=== PATIENT | male | born 1945 | race Caucasian/White ===

== ENCOUNTER → 2016-04-12 | Outpatient (CLI) | payer OTHER, MEDICARE ==
[2016-04-12 11:50] LABS: BASOPHILS # (AUTO) 0.02 10*3/UL; BASOPHILS % (AUTO) 0.5 % (0-1); EOSINOPHILS % (AUTO) 3.7 % (0-8); HEMATOCRIT 43.9 % (42.0-52.0); HEMOGLOBIN 14.4 g/dL (14.0-18.0); IMM GRAN % (AUTO) 0.3 % (0-5); IMM GRAN# (AUTO) 0.01 10*3/UL; LYMPHOCYTES # (AUTO) 0.77 10*3/uL; LYMPHOCYTES % (AUTO) 20.2 % (10-50); MEAN CORPUSCULAR HEMOGLOBIN 30.3 PG (27-31); MEAN CORPUSCULAR HGB CONC 32.8 g/dL (33-37); MEAN PLATELET VOLUME 9.5 FL (7.4-12.2); MONOCYTES # (AUTO) 0.58 10*3/UL (0.3-0.8); MONOCYTES % (AUTO) 15.2 % (5-15); NEUTROPHILS # (AUTO) 2.29 10*3/UL; NEUTROPHILS % (AUTO) 60.1 % (50-80); RDW COEFFICIENT OF VARIATION 13.2 % (11.5-14.5); RED BLOOD COUNT 4.76 10^6/uL (4.70-6.10); WHITE BLOOD COUNT 3.81 10^3/uL (4.8-10.8)
[2016-04-12 11:54] LABS: PLATELET MORPHOLOGY COMMENT NORMAL MORPHOLOGY (NORM)
[2016-04-12 11:59] LABS: BILIRUBIN,TOTAL 0.8 mg/dL (0.3-1.2); BUN/CREATININE RATIO 15.83 (6-20); CALCIUM 9.8 mg/dL (8.7-10.7); CREATININE 1.2 mg/dL (0.70-1.50); POTASSIUM 4.2 meq/L (3.8-5.2); TOTAL PROTEIN 7.1 g/dL (6.1-8.0)
--- NOTE | 2016-04-12 14:42 | DI ---
History: Hypertension. Two-view study. Prior examination: None. Findings: There is linear scarring or atelectasis the left midlung zone. Elsewhere, no nodules are ob served. There is no evidence of effusion. The heart size is within normal limits of 1736. Mild dorsal spondylosis present. Surgical clips in the abdomen identified. Impression: Linear scarring or atelectasis left midlung zone. No cardiac enlargement or failure ident ified. Dorsal spondylosis. Prior abdominal surgery
== END ==
LOC: RAD 11:36
PROVIDERS: ATTEND Internal Medicine
DX: M54.5 Low back pain (principal); I10 Essential (primary) hypertension; E78.5 Hyperlipidemia, unspecified; I25.10 Atherosclerotic heart disease of native coronary artery without angina pectoris; E66.8 Other obesity; J44.9 Chronic obstructive pulmonary disease, unspecified; K21.0 Gastro-esophageal reflux disease with esophagitis; G25.81 Restless legs syndrome; Z86.72 Personal history of thrombophlebitis
CPT/HCPCS: 36415; 71020; 80053; 85025; 85730; 87641; 99214; G0463

== ENCOUNTER → 2016-04-17 | Outpatient (CLI) | payer OTHER, MEDICARE ==
[2016-04-17 08:56] LABS: BASOPHILS # (AUTO) 0.01 10*3/UL; BASOPHILS % (AUTO) 0.3 % (0-1); EOSINOPHILS % (AUTO) 3.1 % (0-8); HEMATOCRIT 43.1 % (42.0-52.0); IMM GRAN % (AUTO) 0.3 % (0-5); IMM GRAN# (AUTO) 0.01 10*3/UL; LYMPHOCYTES % (AUTO) 23.1 % (10-50); MEAN CORPUSCULAR HEMOGLOBIN 30.2 PG (27-31); MEAN CORPUSCULAR HGB CONC 32.5 g/dL (33-37); MEAN PLATELET VOLUME 9.8 FL (7.4-12.2); MONOCYTES # (AUTO) 0.48 10*3/UL (0.3-0.8); MONOCYTES % (AUTO) 12.3 % (5-15); NEUTROPHILS # (AUTO) 2.37 10*3/UL; NEUTROPHILS % (AUTO) 60.9 % (50-80); RDW COEFFICIENT OF VARIATION 13.2 % (11.5-14.5); RED BLOOD COUNT 4.64 10^6/uL (4.70-6.10); WHITE BLOOD COUNT 3.89 10^3/uL (4.8-10.8)
[2016-04-17 09:02] LABS: PLATELET MORPHOLOGY COMMENT NORMAL MORPHOLOGY (NORM)
== END ==
LOC: LAB 08:25
PROVIDERS: ATTEND Internal Medicine
DX: D72.819 Decreased white blood cell count, unspecified (principal)
CPT/HCPCS: 36415; 85025

== ENCOUNTER → 2016-04-26 | Outpatient (CLI) | payer OTHER, MEDICARE ==
[2016-04-26 12:09] LABS: BASOPHILS # (AUTO) 0.02 10*3/UL; BASOPHILS % (AUTO) 0.4 % (0-1); EOSINOPHILS % (AUTO) 4.1 % (0-8); HEMATOCRIT 41.5 % (42.0-52.0); HEMOGLOBIN 13.3 g/dL (14.0-18.0); IMM GRAN % (AUTO) 0.4 % (0-5); IMM GRAN# (AUTO) 0.02 10*3/UL; LYMPHOCYTES # (AUTO) 0.96 10*3/uL; LYMPHOCYTES % (AUTO) 19.8 % (10-50); MEAN CORPUSCULAR HEMOGLOBIN 29.6 PG (27-31); MEAN PLATELET VOLUME 9.7 FL (7.4-12.2); MONOCYTES # (AUTO) 0.51 10*3/UL (0.3-0.8); MONOCYTES % (AUTO) 10.5 % (5-15); NEUTROPHILS # (AUTO) 3.13 10*3/UL; NEUTROPHILS % (AUTO) 64.8 % (50-80); RDW COEFFICIENT OF VARIATION 12.9 % (11.5-14.5); RED BLOOD COUNT 4.49 10^6/uL (4.70-6.10); WHITE BLOOD COUNT 4.84 10^3/uL (4.8-10.8)
[2016-04-26 12:18] LABS: BUN/CREATININE RATIO 14.54 (6-20); CALCIUM 9.9 mg/dL (8.7-10.7); CREATININE 1.1 mg/dL (0.70-1.50); POTASSIUM 4.4 meq/L (3.8-5.2)
[2016-04-26 12:27] LABS: PLATELET MORPHOLOGY COMMENT NORMAL MORPHOLOGY (NORM)
== END ==
LOC: MOB LAB 10:13
PROVIDERS: ATTEND Internal Medicine
DX: Z47.89 Encounter for other orthopedic aftercare (principal); I10 Essential (primary) hypertension; J44.9 Chronic obstructive pulmonary disease, unspecified; I89.0 Lymphedema, not elsewhere classified; I25.10 Atherosclerotic heart disease of native coronary artery without angina pectoris; Z98.890 Other specified postprocedural states
CPT/HCPCS: 36415; 80048; 85025

== ENCOUNTER → 2016-04-27 | Outpatient (CLI) | payer OTHER, MEDICARE | LOC: MMPC 09:00 | PROVIDERS: ATTEND Internal Medicine | DX: Z79.01 Long term (current) use of anticoagulants (principal); Z51.81 Encounter for therapeutic drug level monitoring; Z86.718 Personal history of other venous thrombosis and embolism | CPT/HCPCS: 85610 ==

== ENCOUNTER → 2016-05-01 | Outpatient (CLI) | payer OTHER, MEDICARE | LOC: MMPC 09:00 | PROVIDERS: ATTEND Internal Medicine | DX: Z79.01 Long term (current) use of anticoagulants (principal); Z51.81 Encounter for therapeutic drug level monitoring; Z86.718 Personal history of other venous thrombosis and embolism | CPT/HCPCS: 85610 ==

== ENCOUNTER → 2016-05-04 | Outpatient (CLI) | payer OTHER, MEDICARE | LOC: MMPC 09:00 | PROVIDERS: ATTEND Internal Medicine | DX: Z79.01 Long term (current) use of anticoagulants (principal); Z51.81 Encounter for therapeutic drug level monitoring; Z86.718 Personal history of other venous thrombosis and embolism | CPT/HCPCS: 85610 ==

== ENCOUNTER → 2016-05-18 | Outpatient (CLI) | payer OTHER, MEDICARE | LOC: MMPC 09:00 | PROVIDERS: ATTEND Internal Medicine | DX: Z79.01 Long term (current) use of anticoagulants (principal); Z51.81 Encounter for therapeutic drug level monitoring; Z86.718 Personal history of other venous thrombosis and embolism | CPT/HCPCS: 85610 ==

== ENCOUNTER → 2016-05-22 | Outpatient (CLI) | payer OTHER, MEDICARE | LOC: MMPC 09:00 | PROVIDERS: ATTEND Internal Medicine | DX: Z79.01 Long term (current) use of anticoagulants (principal); Z51.81 Encounter for therapeutic drug level monitoring; Z86.718 Personal history of other venous thrombosis and embolism | CPT/HCPCS: 85610 ==

== ENCOUNTER → 2016-05-24 | Outpatient (CLI) | payer OTHER, MEDICARE | LOC: MMPC 11:11 | PROVIDERS: ATTEND Internal Medicine | DX: I10 Essential (primary) hypertension (principal); G25.81 Restless legs syndrome; J44.9 Chronic obstructive pulmonary disease, unspecified; M43.27 Fusion of spine, lumbosacral region; Z98.890 Other specified postprocedural states | CPT/HCPCS: 99213; G0463 ==

== ENCOUNTER → 2016-05-29 | Outpatient (CLI) | payer OTHER, MEDICARE | LOC: MMPC 09:00 | PROVIDERS: ATTEND Internal Medicine | DX: Z79.01 Long term (current) use of anticoagulants (principal); Z51.81 Encounter for therapeutic drug level monitoring; Z86.718 Personal history of other venous thrombosis and embolism | CPT/HCPCS: 85610 ==

== ENCOUNTER → 2016-06-19 | Outpatient (CLI) | payer OTHER, MEDICARE ==
[2016-06-19 17:00] LABS: BUN/CREATININE RATIO 34.54 (6-20); CALCIUM 9.1 mg/dL (8.7-10.7)
== END ==
LOC: LAB 16:39
PROVIDERS: ATTEND Internal Medicine
DX: I10 Essential (primary) hypertension (principal); R07.89 Other chest pain
CPT/HCPCS: 36415; 80048

== ENCOUNTER → 2016-06-26 | Outpatient (CLI) | payer OTHER, MEDICARE | LOC: MMPC 09:00 | PROVIDERS: ATTEND Internal Medicine | DX: Z79.01 Long term (current) use of anticoagulants (principal); Z51.81 Encounter for therapeutic drug level monitoring; Z86.718 Personal history of other venous thrombosis and embolism | CPT/HCPCS: 85610 ==

== ENCOUNTER → 2016-07-07 | Outpatient (CLI) | payer OTHER, MEDICARE | LOC: LAB 15:27 | PROVIDERS: ATTEND Internal Medicine | DX: E78.5 Hyperlipidemia, unspecified (principal); R07.89 Other chest pain | CPT/HCPCS: 36415; 80048 ==

== ENCOUNTER → 2016-08-05 | Outpatient (CLI) | payer OTHER, MEDICARE | LOC: MMPC 09:00 | PROVIDERS: ATTEND Physician Assistant Medical | DX: J02.0 Streptococcal pharyngitis (principal) | CPT/HCPCS: 99213; G0463; J0561 ==

== ENCOUNTER → 2016-08-14 | Outpatient (CLI) | payer OTHER, MEDICARE | LOC: MMPC 11:11 | PROVIDERS: ATTEND Physician Assistant | DX: J01.90 Acute sinusitis, unspecified (principal) | CPT/HCPCS: 99213; G0463 ==

== ENCOUNTER → 2016-08-23 | Outpatient (CLI) | payer OTHER, MEDICARE | LOC: MMPC 11:11 | PROVIDERS: ATTEND Internal Medicine | DX: I10 Essential (primary) hypertension (principal); G25.81 Restless legs syndrome; J44.9 Chronic obstructive pulmonary disease, unspecified; K21.0 Gastro-esophageal reflux disease with esophagitis; E78.5 Hyperlipidemia, unspecified | CPT/HCPCS: 99213; G0463 ==

== ENCOUNTER → 2016-09-11 | Outpatient (CLI) | payer OTHER, MEDICARE | LOC: MMPC 09:00 | PROVIDERS: ATTEND Internal Medicine | DX: Z79.01 Long term (current) use of anticoagulants (principal); Z51.81 Encounter for therapeutic drug level monitoring; Z86.718 Personal history of other venous thrombosis and embolism | CPT/HCPCS: 85610 ==

== ENCOUNTER → 2016-10-19 | Outpatient (CLI) | payer OTHER, MEDICARE | LOC: MMPC 09:00 | PROVIDERS: ATTEND Internal Medicine | DX: Z79.01 Long term (current) use of anticoagulants (principal); Z51.81 Encounter for therapeutic drug level monitoring; Z86.718 Personal history of other venous thrombosis and embolism | CPT/HCPCS: 85610 ==

== ENCOUNTER 2018-03-06 13:58 | Observation (INO) ==
[2018-03-06] MEDS ORDERED: ACETAMINOPHEN 325 MG TABLET PO PRN (14:26)
[2018-03-06] MEDS ORDERED: DOCUSATE 100 MG CAPSULE PO PRN (14:26)
[2018-03-06] MEDS ORDERED: ONDANSETRON 4 MG/2 ML VIAL IVP PRN (14:26)
[2018-03-06] MEDS ORDERED: HYDROmorphone 2 MG/1 ML IVP PRN (14:26)
[2018-03-06] MEDS ORDERED: LIDOCAINE W/ SODIUM BICARB 0.5 ML SYR SUBD PRN ×2 (14:26→16:29)
[2018-03-06] MEDS ORDERED: CALCIUM CARBONATE 500 MG (TUMS) CHEWABLE TABLET PO PRN (14:26)
[2018-03-06] MEDS ORDERED: Lactated Ringers 1,000 ML PRIMARY IV SCH ×2 (14:30→16:30)
[2018-03-06] MEDS ORDERED: HYDROCORTISONE RC PRN (14:35)
[2018-03-06] MEDS ORDERED: KETOTIFEN FUMARATE OP PRN (14:35)
[2018-03-06] MEDS ORDERED: ALBUTEROL SULFATE 8.5 GM HFA INHALER INH PRN (14:35)
--- NOTE | 2018-03-06 14:43 | PDOC ---
HPI - History of Present Illness History of Present Illness: This very nice 72-year-old gentleman with a history of diverticulitis 1 year ago and DVT on Coumadin. Yesterday morning he started having bright but bright red blood per rectum about 10-12 times during the whole day he was seen in the ER last evening but refused admission. This morning the blood continued to come out with the more bowel movements was worried and went to see his primary care physician labs revealed a hemoglobin of 13 yesterday and today it is 11 and a drop in his hematocrit from 40-36 he complains of no dizziness nausea or vomiting has mild lower abdominal pain and no other symptoms Past Medical History Medical History: DVT, diverticulitis, restless leg syndrome Surgical History: On endoscopy 1 year ago diverticulitis In the Past 12 Months, Have Used or Abuse Any of the Following Substance: None Medication / Allergies Home Medications: Home Medications Medication Instructions Recorded Confirmed Type Hydrocortisone [Proctosol-Hc] 28.35 gm RC BID PRN #29 05/03/11 03/05/18 History Ketotifen Fumarate [Alaway] 1 drp OP BID PRN drp 06/06/11 03/05/18 History Multivitamins W-Minerals/Lut 1 tab ORAL QD tab 06/06/11 03/05/18 History [Centrum Silver Tablet] Nitroglycerin SL Tab [Nitrostat 0.4 mg SL q 5 min prn #25 tab 08/19/15 03/05/18 History SL Tab] cetirizine 10 mg tablet 10 mg PO DAILY tab 03/21/17 03/05/18 History ascorbic acid (vitamin C) 250 mg 250 mg PO BID #60 tab 04/13/17 03/05/18 History tablet ferrous gluconate 324 mg (38 mg 324 mg PO BID #180 tab 04/13/17 03/05/18 History iron) tablet ipratropium-albuterol 0.5 mg-3 3 ml INH Q4-6H PRN #25 vial 04/19/17 03/05/18 Rx mg(2.5 mg base)/3 mL nebulization soln benazepril 10 1 tab PO DAILY #90 tab 07/09/17 03/05/18 Rx mg-hydrochlorothiazide 12.5 mg tablet gabapentin 800 mg tablet 800 mg PO TID #270 tab 01/07/18 03/05/18 Rx meloxicam 15 mg tablet 15 mg PO QD #90 tab 01/07/18 03/05/18 Rx ropinirole 1 mg tablet 1 mg PO TID #270 tab 01/07/18 03/05/18 Rx simvastatin 20 mg tablet 20 mg PO QHS #90 tab 01/07/18 03/05/18 Rx albuterol sulfate HFA 90 2 puff INH Q4-6H PRN #6 inhaler 01/15/18 03/05/18 Rx mcg/actuation aerosol inhaler fluticasone 50 mcg/actuation nasal 2 spr TRAE DAILY #3 bottle 01/15/18 03/05/18 Rx spray,suspension omeprazole 20 mg capsule,delayed 20 mg PO BID #180 cap 01/15/18 03/05/18 Rx release warfarin 1 mg tablet 2 mg PO QDAY #180 tab 01/15/18 03/05/18 Rx Allergies/Adverse Reactions: Allergies Allergy/AdvReac Type Severity Reaction Status Date / Time bacitracin zinc Allergy Severe RASH Verified 03/05/18 17:38 [From Neosporin] gramicidin D [From Neosporin] Allergy Severe contact Verified 03/05/18 17:38 dermititis neomycin sulfate Allergy Severe contact Verified 03/05/18 17:38 [From Neosporin] dermatitis polymyxin B sulfate Allergy Severe contact Verified 03/05/18 17:38 [From Neosporin] dermatitis bacitracin [From Neosporin] Allergy Intermediate contact Verified 03/05/18 17:38 skin allergy Polymyxin B [From Neosporin] Allergy Intermediate RASH Verified 03/05/18 17:38 Polymyxin B Allergy Severe contact Uncoded 03/05/18 17:38 dermatitis TAPE Allergy Intermediate RASH Uncoded 03/05/18 17:38 deli meats Allergy NOT Uncoded 03/05/18 17:38 APPLICABLE seasonal allergies Allergy HIVES Uncoded 03/05/18 17:38 Review of Systems - Review of Systems All Systems: Reviewed & No Additional Complaints Except as Stated - Respiratory Respiratory: DENIES: Negative System Review, Cough, Sputum, Dyspnea At Rest, Dyspnea with Exertion, Pleuritic Pain, Hemoptysis, Wheezing, Other, See HPI - Cardiovascular Cardiovascular: DENIES: Negative System Review, Chest Pain, Edema, Syncope, Palpitations, Orthopnea, Paroxysmal Nocturnal Dyspnea, Other, See HPI - Gastrointestinal Gastrointestinal / Abdominal: REPORTS: Bloody Stool Exam - General General Appearance: Cooperative - Head Head Exam: Normal Inspection, Normocephalic, Atraumatic - Respiratory Respiratory Exam: POSITIVE: Clear to Auscultation - Bilaterally, Breathing Non Labored, Normal To Percussion, Normal to Percussion and Palpation - Cardiovascular Cardiovascular Exam: POSITIVE: RRR, No Murmur, No Clicks, No Gallops, No Rubs, PMI Non-Displaced - GI/Abdominal GI/Abdominal Exam: POSITIVE: Normal Bowel Sounds, Non Tender, Non Distended, Soft, No Masses, No Hepatomegaly, No Splenomegaly, No Organomegaly - Extremities Extremities Exam: POSITIVE: No Clubbing Present, No Edema Present, No Cyanosis Present Assessment and Plan - Patient Problems (1) Gastrointestinal bleeding Status: Acute Comment: 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
[2018-03-06] MEDS ORDERED: PANTOPRAZOLE IV 40 MG VIAL IV ONE (14:45)
[2018-03-06] MEDS: Ropinirole Tab 1 MG TAB PO SCH ×2 (15:05→21:28)
[2018-03-06] MEDS: GABAPENTIN 400 MG CAPSULE PO SCH ×2 (15:05→21:28)
--- NOTE | 2018-03-06 16:40 | CONSULT ---
Consult Note - Consult Consult Date: 03/06/18 Reason for Consult: PreOp Consulation : General Surgery Requesting Physician: Dr. Ho Primary Care Provider: Anitra Skinner MD - History of Present Illness History of Present Illness: This is a 72-year-old gentleman whose developed who developed lower GI bleed on 03/05/2018. He states he is bleeding a lot. 2 times economic to the restroom. His initial hemoglobin that time was 13. Patient at point refused to come in the hospital for admission. Patient was checked of the walk-in clinic this morning his hemoglobin was around 11. He states he had a bloody bowel movement this morning but had a normal bowel movement later this evening. He may seem hemodynamically stable. His INR was 2.4 Past Medical History Medical History: DVT, diverticulitis, restless leg syndrome Surgical History: On endoscopy 1 year ago diverticulitis Tobacco Use: Former Smoker In the Past 12 Months, Have Used or Abuse Any of the Following Substance: None Medication / Allergies Home Medications: Home Medications Medication Instructions Recorded Confirmed Type Hydrocortisone [Proctosol-Hc] 28.35 gm RC BID PRN #29 05/03/11 03/05/18 History Ketotifen Fumarate [Alaway] 1 drp OP BID PRN drp 06/06/11 03/05/18 History Multivitamins W-Minerals/Lut 1 tab ORAL QD tab 06/06/11 03/05/18 History [Centrum Silver Tablet] Nitroglycerin SL Tab [Nitrostat 0.4 mg SL q 5 min prn #25 tab 08/19/15 03/05/18 History SL Tab] cetirizine 10 mg tablet 10 mg PO DAILY tab 03/21/17 03/05/18 History ascorbic acid (vitamin C) 250 mg 250 mg PO BID #60 tab 04/13/17 03/05/18 History tablet ferrous gluconate 324 mg (38 mg 324 mg PO BID #180 tab 04/13/17 03/05/18 History iron) tablet ipratropium-albuterol 0.5 mg-3 3 ml INH Q4-6H PRN #25 vial 04/19/17 03/05/18 Rx mg(2.5 mg base)/3 mL nebulization soln benazepril 10 1 tab PO DAILY #90 tab 07/09/17 03/05/18 Rx mg-hydrochlorothiazide 12.5 mg tablet gabapentin 800 mg tablet 800 mg PO TID #270 tab 01/07/18 03/05/18 Rx meloxicam 15 mg tablet 15 mg PO QD #90 tab 01/07/18 03/05/18 Rx ropinirole 1 mg tablet 1 mg PO TID #270 tab 01/07/18 03/05/18 Rx simvastatin 20 mg tablet 20 mg PO QHS #90 tab 01/07/18 03/05/18 Rx albuterol sulfate HFA 90 2 puff INH Q4-6H PRN #6 inhaler 01/15/18 03/05/18 Rx mcg/actuation aerosol inhaler fluticasone 50 mcg/actuation nasal 2 spr TRAE DAILY #3 bottle 01/15/18 03/05/18 Rx spray,suspension omeprazole 20 mg capsule,delayed 20 mg PO BID #180 cap 01/15/18 03/05/18 Rx release warfarin 1 mg tablet 2 mg PO QDAY #180 tab 01/15/18 03/05/18 Rx Allergies/Adverse Reactions: Allergies Allergy/AdvReac Type Severity Reaction Status Date / Time bacitracin zinc Allergy Severe RASH Verified 03/05/18 17:38 [From Neosporin] gramicidin D [From Neosporin] Allergy Severe contact Verified 03/05/18 17:38 dermititis neomycin sulfate Allergy Severe contact Verified 03/05/18 17:38 [From Neosporin] dermatitis polymyxin B sulfate Allergy Severe contact Verified 03/05/18 17:38 [From Neosporin] dermatitis bacitracin [From Neosporin] Allergy Intermediate contact Verified 03/05/18 17:38 skin allergy Polymyxin B [From Neosporin] Allergy Intermediate RASH Verified 03/05/18 17:38 Polymyxin B Allergy Severe contact Uncoded 03/05/18 17:38 dermatitis TAPE Allergy Intermediate RASH Uncoded 03/05/18 17:38 deli meats Allergy NOT Uncoded 03/05/18 17:38 APPLICABLE seasonal allergies Allergy HIVES Uncoded 03/05/18 17:38 Exam - Vitals Vital Signs: Vital Signs Temperature 97.8 F Temperature Source Oral Pulse Rate [Pulse Oximeter] 88 Pulse Rate 83 Respiratory Rate 16 Blood Pressure [Right Arm] 145/69 Pulse Ox 92 Oxygen Delivery Method Room Air Height 6 ft Weight 230 lb - General General Appearance: No Acute Distress (No additional exam was done today.), Cooperative Assessment and Plan - Patient Problems (1) Gastrointestinal bleeding Current Visit: No Status: Acute Code(s): K92.2 - Gastrointestinal hemorrhage, unspecified - Assessment / Plan Additional Assessment/Plan Details: Patient has a history of diverticulosis and also hemorrhoid surgery in 2016. Most likely his 1 these 2 reasons that is bleeding. At his colonoscopy in 2016, the patient is found to have a diverticulosis but we could not see the cecum. At that time the patient has refused have a additional study. Patient has consented to do a flexible sigmoidoscopy in the a.m. He needs have his Coumadin reversed. He'll be up to his primary care doctor whether they need to restart the Coumadin are switching to Eliquis.
[2018-03-06] MEDS ORDERED: PHYTONADIONE 10 MG/1 ML AMPULE PO ONE (16:49)
[2018-03-06 17:39] LABS: BASOPHILS # (AUTO) 0.01 10*3/UL; BASOPHILS % (AUTO) 0.2 % (0-1); EOSINOPHILS # (AUTO) 0.14 10*3/UL; EOSINOPHILS % (AUTO) 2.9 % (0-8); Hematocrit [HCT] 33.5 % (42.0-52.0); Hemoglobin [HGB] 10.8 g/dL (14.0-18.0); LYMPHOCYTES # (AUTO) 1.04 10*3/uL; MEAN CORPUSCULAR HEMOGLOBIN 30.5 PG (27-31); MEAN CORPUSCULAR HGB CONC 32.2 g/dL (33-37); MEAN CORPUSCULAR VOLUME 94.6 FL (80-90); MEAN PLATELET VOLUME 9.1 FL (7.4-12.2); MONOCYTES # (AUTO) 0.51 10*3/UL (0.3-0.8); MONOCYTES % (AUTO) 10.6 % (5-15); NEUTROPHILS % (AUTO) 64.5 % (50-80); RED BLOOD COUNT 3.54 10^6/uL (4.70-6.10)
[2018-03-06 17:41] LABS: PLATELET MORPHOLOGY COMMENT NORMAL MORPHOLOGY (NORM); RBC MORPHOLOGY COMMENT NORMAL MORPHOLOGY (NORM); WBC MORPHOLOGY COMMENT NORMAL MORPHOLOGY (NORM)
[2018-03-06] MEDS ORDERED: Simvastatin Tab 20 MG TAB PO SCH (21:00)
[2018-03-06] MEDS: PANTOPRAZOLE IV 40 MG VIAL IVP SCH (21:28)
[2018-03-07 04:53] LABS: BASOPHILS # (AUTO) 0.01 10*3/UL; BASOPHILS % (AUTO) 0.2 % (0-1); EOSINOPHILS # (AUTO) 0.14 10*3/UL; EOSINOPHILS % (AUTO) 3.5 % (0-8); Hematocrit [HCT] 32.1 % (42.0-52.0); Hemoglobin [HGB] 10.2 g/dL (14.0-18.0); LYMPHOCYTES # (AUTO) 1.01 10*3/uL; MEAN CORPUSCULAR HEMOGLOBIN 29.9 PG (27-31); MEAN CORPUSCULAR HGB CONC 31.8 g/dL (33-37); MEAN CORPUSCULAR VOLUME 94.1 FL (80-90); MEAN PLATELET VOLUME 9.5 FL (7.4-12.2); MONOCYTES # (AUTO) 0.43 10*3/UL (0.3-0.8); MONOCYTES % (AUTO) 10.6 % (5-15); NEUTROPHILS # (AUTO) 2.45 10*3/UL; NEUTROPHILS % (AUTO) 60.7 % (50-80); RED BLOOD COUNT 3.41 10^6/uL (4.70-6.10)
[2018-03-07 05:27] LABS: PLATELET MORPHOLOGY COMMENT NORMAL MORPHOLOGY (NORM); RBC MORPHOLOGY COMMENT NORMAL MORPHOLOGY (NORM); WBC MORPHOLOGY COMMENT NORMAL MORPHOLOGY (NORM)
[2018-03-07] MEDS ORDERED: Fleet Enema 133ml RECTAL STA ×2 (06:54→07:18)
[2018-03-07] MEDS ORDERED: Fleet Enema 133ml RECTAL ONE (07:16)
[2018-03-07] MEDS ORDERED: PROPOFOL 10 MG/1 ML (200 MG/20 ML) VIAL IV ONE (07:23)
[2018-03-07] MEDS ORDERED: fentaNYL Inj 100 MCG/2 ML VIAL ONE (07:24)
[2018-03-07] MEDS ORDERED: MIDAZOLAM HCL 2 MG/2 ML VIAL ONE (07:24)
[2018-03-07] MEDS ORDERED: Lactated Ringers 1,000 ML PRIMARY IV ONE (07:52)
--- NOTE | 2018-03-07 08:12 | GEN.OPNOTE ---
Colonoscopy Procedure Note Surgery Date: 03/07/18 Preoperative Diagnosis: Lower GI bleed Postoperative Diagnosis: Lower GI bleed Procedure: Sigmoidoscopy Surgeon: Theodore Chaney MD Anesthesia Provider: Leela Barker CRNA Anesthesia Type: MAC Indications: 72-year-old gentleman with a lower GI bleed. Patient has had a hemorrhoidectomy in the past and also known diverticular disease. He is on warfarin therapy. I did have them given sedation because of I can get across further on the: I will try to get as far as I can Findings: Prep : Cecum : Ascending : Transverse : Sigmoid : Sigmoid colon had diverticulosis. There is no active bleeding. There is no blood seen in the colon Rectum : Rectum had no active bleeding. He does not have any bulging hemorrhoids Digital Rectal Exam : A lubricated flexible colonoscope was inserted and passed to the blind end of the cecum. Endoscopy Procedures - Endoscopy Procedures Primary Endoscopy Procedure: 23365 : Sigmoidoscopy
--- NOTE | 2018-03-07 08:15 | CRNA.PROGR ---
Anesthesia Time - Procedure/Recovery Time Start Date: 03/07/18 Anesthesia : Time In: 07:50 Anesthesia : Time Out: 08:10 - Other Weight: 100.38 kg Height: 6 ft Body Mass Index (BMI): 29.9 Physical Status: P3 Anesthesia Type: MAC (INPATIENT)
[2018-03-07] MEDS ORDERED: HYDROCHLOROTHIAZIDE 12.5 MG CAPSULE PO SCH (09:00)
[2018-03-07] MEDS ORDERED: LORATADINE 10 MG TABLET PO SCH (09:00)
[2018-03-07] MEDS ORDERED: ASCORBIC ACID Chewable 500 MG TABLET PO SCH (09:00)
[2018-03-07] MEDS ORDERED: [UNRECOGNIZED DRUG - OTHER] PO SCH (09:00)
[2018-03-07] MEDS ORDERED: BENAZEPRIL PO SCH (09:00)
[2018-03-07] MEDS ORDERED: HYDROCHLOROTHIAZIDE PO SCH (09:00)
[2018-03-07] MEDS ORDERED: Multivitamin Tab 1 TAB PO SCH (09:00)
[2018-03-07] MEDS ORDERED: BENAZEPRIL 10 MG TABLET PO SCH (09:00)
[2018-03-07] MEDS ORDERED: FLUTICASONE PROPIONATE 16 GRAM (120 SPRAYS / BOTTLE) ENOS SCH (09:00)
--- NOTE | 2018-03-07 09:24 | DCSUMMARY ---
Hospitalization Summary Hospital Course: Final Discharge Diagnosis: Lower GI bleed Diagnostic Data, Laboratory Data, and Procedures of Signifigance: CBC and BMP 03/07/18 05:00 Laboratory Results 03/06/18 03/07/18 03/07/18 17:37 04:25 05:00 WBC 4.81 4.04 L RBC 3.54 L 3.41 L Hgb 10.8 L 10.2 L Hct 33.5 L 32.1 L MCV 94.6 H 94.1 H MCH 30.5 29.9 MCHC 32.2 L 31.8 L RDW Std Deviation 45.5 45.7 RDW Coeff of Héctor 13.8 13.7 Plt Count 129 L 123 L MPV 9.1 9.5 Immature Gran % (Auto) 0.2 0 Neut % (Auto) 64.5 60.7 Lymph % (Auto) 21.6 25.0 Ward % (Auto) 10.6 10.6 Eos % (Auto) 2.9 3.5 Baso % (Auto) 0.2 0.2 Immature Gran # (Auto) 0.01 0 Neut # (Auto) 3.10 2.45 Lymph # (Auto) 1.04 1.01 Ward # (Auto) 0.51 0.43 Eos # (Auto) 0.14 0.14 Baso # (Auto) 0.01 0.01 WBC Morphology Comment Normal morphology Normal morphology Plt Morphology Comment Normal morphology Normal morphology RBC Morph Comment Normal morphology Normal morphology PT 17.6 H INR 1.70 History and Physical pertinent to Admission: Course of Hospitalization: This very nice 72-year-old gentleman who was admitted yesterday for bright red blood per rectum sent to the hospital by his primary care physician. Hemoglobin the was 13 down to 11 and some drop in his hematocrit general surgery was consult did and the patient had a flexible sigmoidoscopy this morning which showed diverticulosis but no active bleeding or hemorrhoid bleeding patient is doing well back to his normal state his Coumadin was reversed yesterday with 10 mg of vitamin K. I discussed the case with Dr. aaron Mason which recommended patient can be safely discharged home. Also he will follow-up with his primary care physician which will decide if to resume anticoagulation or not. At this [facility]. aaron Mason does not want his patent this patient to start taking the Coumadin again considering his bleeding. This was discussed with the patient which agrees he said he will have a conversation with the primary care physician in regards to either maybe not restarting anticoagulation and he knows about the risks since he had a previous DVT or maybe changing to another anticoagulant On the date of discharge, the patient was examined: Gen.: No acute distress, alert, nontoxic Heart: Regular rate and rhythm, no murmurs, clicks, gallops, or rubs Lungs: Clear to auscultation bilaterally, breathing is nonlabored Abdomen/GI: Normal tones on auscultation, soft, nontender, nondistended Musculoskeletal/extremities: No clubbing, cyanosis, or edema Vitals reviewed and are listed below Vital Signs (24 hrs) 03/06/18 14:17 03/06/18 15:00 03/06/18 17:00 Temperature 97.8 F 97.8 F Pulse Rate 83 Pulse Rate [Pulse Oximeter] 88 85 Respiratory Rate 16 20 Blood Pressure Blood Pressure [Right Arm] 145/69 113/64 Pulse Ox 92 92 03/06/18 19:00 03/06/18 19:27 03/06/18 21:00 Temperature 98.7 F Pulse Rate 83 Pulse Rate [Pulse Oximeter] 69 69 Respiratory Rate 18 18 Blood Pressure Blood Pressure [Right Arm] 100/64 Pulse Ox 96 03/06/18 23:00 03/07/18 00:46 03/07/18 03:00 Temperature 97.9 F Pulse Rate 72 64 Pulse Rate [Pulse Oximeter] 73 Respiratory Rate 16 Blood Pressure Blood Pressure [Right Arm] 94/51 Pulse Ox 95 03/07/18 04:10 03/07/18 08:02 03/07/18 08:04 Temperature 97.4 F 98.1 F 97.7 F Pulse Rate 72 Pulse Rate [Pulse Oximeter] 70 Respiratory Rate 18 18 12 Blood Pressure 110/76 Blood Pressure [Right Arm] 122/68 118/57 Pulse Ox 90 91 99 03/07/18 08:30 03/07/18 08:51 Temperature 97.8 F 97.4 F Pulse Rate Pulse Rate [Pulse Oximeter] 77 77 Respiratory Rate 18 20 Blood Pressure Blood Pressure [Right Arm] 107/71 117/61 Pulse Ox 91 91 Assessment and Plan: 1. As per discharge assessments above 2. Disposition: Home 3. Condition on discharge, stable and improved. 4. Diet: regular diet 5. Activities: resume normal activities 6. Follow-Up: 1. PCP and Dr. aaron Mason 2. 7. Medications at the Time of Discharge: Home Medications Medication Instructions Recorded Confirmed Type Hydrocortisone [Proctosol-Hc] 28.35 gm RC BID PRN #29 05/03/11 03/05/18 History Ketotifen Fumarate [Alaway] 1 drp OP BID PRN drp 06/06/11 03/05/18 History Multivitamins W-Minerals/Lut 1 tab ORAL QD tab 06/06/11 03/05/18 History [Centrum Silver Tablet] Nitroglycerin SL Tab [Nitrostat 0.4 mg SL q 5 min prn #25 tab 08/19/15 03/05/18 History SL Tab] cetirizine 10 mg tablet 10 mg PO DAILY tab 03/21/17 03/05/18 History ascorbic acid (vitamin C) 250 mg 250 mg PO BID #60 tab 04/13/17 03/05/18 History tablet ferrous gluconate 324 mg (38 mg 324 mg PO BID #180 tab 04/13/17 03/05/18 History iron) tablet ipratropium-albuterol 0.5 mg-3 3 ml INH Q4-6H PRN #25 vial 04/19/17 03/05/18 Rx mg(2.5 mg base)/3 mL nebulization soln benazepril 10 1 tab PO DAILY #90 tab 07/09/17 03/05/18 Rx mg-hydrochlorothiazide 12.5 mg tablet gabapentin 800 mg tablet 800 mg PO TID #270 tab 01/07/18 03/05/18 Rx ropinirole 1 mg tablet 1 mg PO TID #270 tab 01/07/18 03/05/18 Rx simvastatin 20 mg tablet 20 mg PO QHS #90 tab 01/07/18 03/05/18 Rx albuterol sulfate HFA 90 2 puff INH Q4-6H PRN #6 inhaler 01/15/18 03/05/18 Rx mcg/actuation aerosol inhaler fluticasone 50 mcg/actuation nasal 2 spr TRAE DAILY #3 bottle 01/15/18 03/05/18 Rx spray,suspension omeprazole 20 mg capsule,delayed 20 mg PO BID #180 cap 01/15/18 03/05/18 Rx release Multivitamin Tab [Thera Tab] 1 tab PO DAILY tab 03/07/18 Rx 8. Time, care, counseling and coordination of care for this discharge is greater than 30 minutes. Exam - Vitals Vital Signs: Vital Signs Temperature 97.4 F Temperature Source Temporal Artery Scan Pulse Rate [Pulse Oximeter] 77 Pulse Rate 72 Respiratory Rate 20 Blood Pressure [Right Arm] 117/61 Blood Pressure 110/76 Pulse Ox 91 Oxygen Flow Rate 1 Oxygen Delivery Method Room Air Height 6 ft Weight 221 lb 4.8 oz Patient Problems - Patient Problem List (1) Gastrointestinal bleeding Current Visit: No Status: Acute Code(s): K92.2 - Gastrointestinal hemorrhage, unspecified Category: Medical (2) Anemia Current Visit: No Status: Chronic Onset Date: 04/27/15 Code(s): D64.9 - Anemia, unspecified Category: Medical
[2018-03-07] MEDS: GABAPENTIN 400 MG CAPSULE PO SCH (09:33)
[2018-03-07] MEDS: PANTOPRAZOLE IV 40 MG VIAL IVP SCH (09:38)
[2018-03-07] MEDS: Ropinirole Tab 1 MG TAB PO SCH (09:38)
[2018-03-07] MEDS ORDERED: Fleet Enema 133ml RECTAL SCH (15:00)
== END 2018-03-07 10:49 | disposition home or self-care (01) ==
LOC: MED/SURG → OPS 03-07 07:44 → MED/SURG 03-07 08:10
PROVIDERS: ADMIT Internal Medicine; ATTEND Internal Medicine